=== PATIENT | male | born 1960 | race Caucasian/White ===

== ENCOUNTER 2022-01-24 11:57 | Emergency (ER) | payer OTHER, MEDICAID ==
[~2022-01-24] VITALS: Ht 167.6 cm; Wt 78.0 kg
[2022-01-24 11:58] VITALS: BP 150/80
[2022-01-24] MEDS ORDERED: CLIN-194 MT (15:11)
[2022-01-24] MEDS ORDERED: IBUP-2028 MT (15:11)
== END 2022-01-24 16:56 | disposition home or self-care (01) ==
LOC: ER 11:57
DX: L03.113 Cellulitis of right upper limb (principal)
CPT/HCPCS: 99283

== ENCOUNTER 2022-03-01 20:09 | Inpatient (IN) | payer MEDICARE, MEDICAID ==
[~2022-03-01] VITALS: Ht 177.8 cm; Wt 81.6 kg
[~2022-03-01 20:09] MED LIST: CLIN-194 MT; IBUP-2028 MT
[2022-03-01] MEDS ORDERED: SODIUM CHLORIDE 0.9% 1,000 ML IV ONE (23:15)
[2022-03-01] MEDS ORDERED: ACETAMINOPHEN 325MG TABLET PO STA (23:15)
[2022-03-01 23:55] LABS: HEMOGLOBIN. 11.1 g/dL (14.0-18.0); MEAN CORPUSCULAR HEMOGLOBIN 34.1 pg (28.0-32.0); MEAN CORPUSCULAR VOLUME 101.5 fL (80.0-94.0); MEAN PLATELET VOLUME 5.8 fl (7.4-10.4); PLATELET 442 x1000/uL (130-400); RED BLOOD CELL COUNT 3.25 mill/uL (4.7-6.1); RED CELL DISTRIBUTION WIDTH 16.9 % (11.6-14.6)
[2022-03-02] LABS: CHLORIDE 109 mEq/L (98-107)
[2022-03-02 00:13] LABS: ETHANOL BLOOD 328 mg/dL
[2022-03-02] MEDS ORDERED: MAGNESIUM 2 G PREMIX 50 ML IV ONE (00:30)
[2022-03-02] MEDS ORDERED: POTASSIUM CHLORIDE 20MEQ TABLET SR PO ONE (00:30)
[2022-03-02] MEDS ORDERED: SODIUM CHLORIDE 0.9% 1,000 ML IV ONE (00:30)
[2022-03-02 02:30] LABS: PLATELET ESTIMATE INCREASED
[2022-03-02] MEDS ORDERED: CHLORDIAZEPOXIDE 25MG CAPSULE PO ONE (06:15)
[2022-03-02 09:00] VITALS: BP 117/64
[2022-03-02] MEDS ORDERED: TRAMADOL 50MG TABLET PO PRN (10:00)
[2022-03-02] MEDS ORDERED: MAGNESIUM/ALUMINUM HYDROXIDE/SIMETHICONE 30ML UDC PO PRN (10:00)
[2022-03-02] MEDS ORDERED: GUAIFENESIN 200MG/10ML SUGAR FREE UDC PO PRN (10:00)
[2022-03-02] MEDS ORDERED: ONDANSETRON HCL 4MG/2ML INJ IV PRN (10:00)
[2022-03-02] MEDS ORDERED: DOCUSATE SODIUM 100MG CAPSULE PO PRN (10:00)
[2022-03-02] MEDS ORDERED: ACETAMINOPHEN 325MG TABLET PO PRN (10:00)
[2022-03-02] MEDS ORDERED: CLONIDINE 0.1MG TABLET PO PRN (10:00)
[2022-03-02] MEDS ORDERED: KCL 10MEQ/50ML PREMIX 50 ML IV NR (11:00)
[2022-03-02 12:00] VITALS: BP 120/70
[2022-03-02] MEDS ORDERED: MVI, ADULT NO.1 10 ML, FOLIC ACID 1 MG, THIAMINE HCL 100 MG in SODIUM CHLORIDE 0.9% 1,0... IV SCH ×4 (12:00)
[2022-03-02 12:53] LABS: BASOPHILS % 0.2 % (0.0-2.0); EOSINOPHILS % 0.6 % (0.0-5.0); HEMATOCRIT. 26.6 % (42.0-52.0); HEMOGLOBIN. 9.4 g/dL (14.0-18.0); MEAN CORPUSCULAR HEMOGLOBIN 34.8 pg (28.0-32.0); MEAN CORPUSCULAR VOLUME 98.3 fL (80.0-94.0); MEAN PLATELET VOLUME 6.1 fl (7.4-10.4); MONOCYTES % 7.9 % (2.0-8.0); NEUTROPHILS % 71.3 % (40.0-76.0); PLATELET 355 x1000/uL (130-400); RED BLOOD CELL COUNT 2.71 mill/uL (4.7-6.1); RED CELL DISTRIBUTION WIDTH 16.7 % (11.6-14.6)
[2022-03-02] MEDS ORDERED: VANCOMYCIN 2,000 MG in DEXT 5% WATER 500 ML IV NR (13:00)
[2022-03-02 13:12] LABS: CHLORIDE 106 mEq/L (98-107)
[2022-03-02] MEDS: PIPERACILLIN/TAZOBACTAM 3.375 G in DEXTROSE 5% WATER 50 ML IV SCH ×2 (13:29→21:17)
[2022-03-02] MEDS: GABAPENTIN 100MG CAPSULE PO SCH ×2 (13:30→21:17)
[2022-03-02 16:00] VITALS: BP 123/66
[2022-03-02] MEDS ORDERED: DEXTROSE 50% WATER 50ML SYRINGE IV PRN (18:45)
[2022-03-02] MEDS ORDERED: OXYC-580 PO (19:49)
[2022-03-02] MEDS ORDERED: GABA-532 PO (19:49)
[2022-03-02] MEDS ORDERED: METH-773 PO (19:49)
[2022-03-02] MEDS ORDERED: levothyroxine PO (19:49)
[2022-03-02 20:10] VITALS: BP 114/65
[2022-03-02] MEDS ORDERED: HYDROCODONE/ACETAMINOPHEN 7.5/325MG TABLET PO PRN (21:00)
[2022-03-02] MEDS ORDERED: NALOXONE HCL 0.4MG/ML VIAL IV PRN (21:00)
[2022-03-02] MEDS: BLOOD SUGAR DIAGNOSTIC STRIP TEST SCH (21:18)
[2022-03-02] MEDS: NICOTINE 21MG PATCH TD SCH (21:18)
[2022-03-02] MEDS: INSULIN LISPRO 100 UNITS/ML SUBCUT SCH (21:19)
[2022-03-02] MEDS: HYDROCODONE/ACETAMINOPHEN 7.5/325MG TABLET PO PRN (21:30)
[2022-03-02] MEDS: LORAZEPAM 2MG/ML CPJ IV PRN (23:45)
[2022-03-03] VITALS: BP 102/58
[2022-03-03] MEDS: VANCOMYCIN 1.25GM PMX (XELLIA) 250 ML IV SCH ×2 (01:21→13:59)
[2022-03-03 04:02] VITALS: BP 100/59
[2022-03-03] MEDS: LORAZEPAM 2MG/ML CPJ IV PRN ×2 (04:02→17:39)
[2022-03-03] MEDS: HYDROCODONE/ACETAMINOPHEN 7.5/325MG TABLET PO PRN (04:02)
[2022-03-03] MEDS: PIPERACILLIN/TAZOBACTAM 3.375 G in DEXTROSE 5% WATER 50 ML IV SCH ×3 (05:32→22:06)
[2022-03-03 05:55] LABS: BASOPHILS % 0.5 % (0.0-2.0); EOSINOPHILS % 1.2 % (0.0-5.0); HEMOGLOBIN. 8.2 g/dL (14.0-18.0); LYMPHOCYTES % 24.4 % (20.0-50.0); MEAN CORPUSCULAR HEMOGLOBIN 34.5 pg (28.0-32.0); MEAN CORPUSCULAR VOLUME 101.9 fL (80.0-94.0); MEAN PLATELET VOLUME 6.3 fl (7.4-10.4); NEUTROPHILS % 61.9 % (40.0-76.0); PLATELET 266 x1000/uL (130-400); RED BLOOD CELL COUNT 2.36 mill/uL (4.7-6.1); RED CELL DISTRIBUTION WIDTH 17.2 % (11.6-14.6)
[2022-03-03 06:34] LABS: CHLORIDE 100 mEq/L (98-107)
[2022-03-03] MEDS: GABAPENTIN 100MG CAPSULE PO SCH (06:40)
[2022-03-03] MEDS: BLOOD SUGAR DIAGNOSTIC STRIP TEST SCH ×4 (06:43→20:59)
[2022-03-03 06:48] LABS: HDL CHOLESTEROL 55 mg/dL (40-59); LDL CHOLESTEROL 32 mg/dL (5-100)
[2022-03-03 08:00] VITALS: BP 115/62
[2022-03-03] MEDS ORDERED: INSULIN GLARGINE 100 UNITS/ML SUBCUT SCH (10:15)
[2022-03-03] MEDS: NICOTINE 21MG PATCH TD SCH (10:37)
[2022-03-03] MEDS: INSULIN LISPRO 100 UNITS/ML SUBCUT SCH ×4 (10:40→20:58)
[2022-03-03] MEDS ORDERED: METHOCARBAMOL 500MG TABLET PO PRN (11:45)
[2022-03-03 12:00] VITALS: BP 110/60
[2022-03-03 16:00] VITALS: BP 125/70
[2022-03-03 17:18] LABS: VITAMIN B12 SERUM 747 pg/mL (211-911)
[2022-03-03] MEDS: OXYCODONE HCL 5MG TABLET PO PRN ×2 (17:38→21:59)
[2022-03-03 20:00] VITALS: BP 114/67
[2022-03-03] MEDS: PREGABALIN 50 MG CAPSULE PO SCH ×2 (22:04→22:05)
[2022-03-04] VITALS (8 sets, daily range): BP systolic 110–149; BP diastolic 62–94
[2022-03-04] MEDS: VANCOMYCIN 1.25GM PMX (XELLIA) 250 ML IV SCH (01:50)
[2022-03-04] MEDS: OXYCODONE HCL 5MG TABLET PO PRN ×6 (02:25→23:12)
[2022-03-04] MEDS: PIPERACILLIN/TAZOBACTAM 3.375 G in DEXTROSE 5% WATER 50 ML IV SCH ×3 (06:18→23:13)
[2022-03-04] MEDS: PREGABALIN 50 MG CAPSULE PO SCH ×3 (06:19→21:05)
[2022-03-04] MEDS: LORAZEPAM 2MG/ML CPJ IV PRN (06:21)
[2022-03-04] MEDS: BLOOD SUGAR DIAGNOSTIC STRIP TEST SCH ×4 (06:42→21:00)
[2022-03-04] MEDS: INSULIN LISPRO 100 UNITS/ML SUBCUT SCH ×4 (06:51→21:05)
[2022-03-04 08:45] LABS: CHLORIDE 98 mEq/L (98-107)
[2022-03-04] MEDS: INSULIN GLARGINE 100 UNITS/ML SUBCUT SCH (10:08)
[2022-03-04] MEDS: NICOTINE 21MG PATCH TD SCH (10:09)
[2022-03-04] MEDS: VANCOMYCIN 1G PREMIX 200 ML IV SCH ×2 (13:28→21:41)
[2022-03-04] MEDS ORDERED: SULF1TAB48 MT (16:30)
[2022-03-05] VITALS: BP 147/97
[2022-03-05 04:00] VITALS: BP 106/68
[2022-03-05] MEDS: OXYCODONE HCL 5MG TABLET PO PRN ×3 (04:11→13:03)
[2022-03-05] MEDS: VANCOMYCIN 1G PREMIX 200 ML IV SCH (04:12)
[2022-03-05] MEDS: LORAZEPAM 2MG/ML CPJ IV PRN ×2 (04:51→13:03)
[2022-03-05] MEDS: PIPERACILLIN/TAZOBACTAM 3.375 G in DEXTROSE 5% WATER 50 ML IV SCH (06:16)
[2022-03-05] MEDS: PREGABALIN 50 MG CAPSULE PO SCH ×2 (06:21→13:03)
[2022-03-05] MEDS ORDERED: INSULIN LISPRO 100 UNITS/ML SUBCUT NR (06:30)
[2022-03-05] MEDS: BLOOD SUGAR DIAGNOSTIC STRIP TEST SCH (06:32)
[2022-03-05] MEDS: INSULIN LISPRO 100 UNITS/ML SUBCUT SCH ×2 (06:33→13:50)
[2022-03-05 08:00] VITALS: BP 149/93
[2022-03-05] MEDS: NICOTINE 21MG PATCH TD SCH (09:12)
[2022-03-05] MEDS: INSULIN GLARGINE 100 UNITS/ML SUBCUT SCH (09:12)
[2022-03-05 12:00] VITALS: BP 142/80
== END 2022-03-05 14:20 | DRG 853 ==
LOC: ER 20:09 → 6WST 03-02 06:17 → ENRESERV 03-02 07:14 → 6WST 03-02 09:27
PROVIDERS: ADMIT Hospitalist; ATTEND Hospitalist
PROC: 0LBV0ZZ Excision of Right Foot Tendon, Open Approach (ICD-10-PCS; principal; 2022-03-03)
PROC: 0JBR0ZZ Excision of Left Foot Subcutaneous Tissue and Fascia, Open Approach (ICD-10-PCS; 2022-03-03)
DX: A41.9 Sepsis, unspecified organism (principal); G92.9 Unspecified toxic encephalopathy; F10.239 Alcohol dependence with withdrawal, unspecified; E44.0 Moderate protein-calorie malnutrition; L03.115 Cellulitis of right lower limb; D63.8 Anemia in other chronic diseases classified elsewhere; E11.40 Type 2 diabetes mellitus with diabetic neuropathy, unspecified; F17.200 Nicotine dependence, unspecified, uncomplicated; G89.4 Chronic pain syndrome; M19.072 Primary osteoarthritis, left ankle and foot; M19.071 Primary osteoarthritis, right ankle and foot; F17.210 Nicotine dependence, cigarettes, uncomplicated; E03.9 Hypothyroidism, unspecified; E11.65 Type 2 diabetes mellitus with hyperglycemia; S00.81XA Abrasion of other part of head, initial encounter; D53.9 Nutritional anemia, unspecified; L97.519 Non-pressure chronic ulcer of other part of right foot with unspecified severity; S00.31XA Abrasion of nose, initial encounter; L97.529 Non-pressure chronic ulcer of other part of left foot with unspecified severity; E11.42 Type 2 diabetes mellitus with diabetic polyneuropathy; M47.26 Other spondylosis with radiculopathy, lumbar region; M47.812 Spondylosis without myelopathy or radiculopathy, cervical region; M51.16 Intervertebral disc disorders with radiculopathy, lumbar region; I10 Essential (primary) hypertension; E78.5 Hyperlipidemia, unspecified; F10.229 Alcohol dependence with intoxication, unspecified; Z68.25 Body mass index [BMI] 25.0-25.9, adult; X58.XXXA Exposure to other specified factors, initial encounter; Y93.89 Activity, other specified; Y92.89 Other specified places as the place of occurrence of the external cause; Y99.8 Other external cause status; E11.621 Type 2 diabetes mellitus with foot ulcer
CPT/HCPCS: 36415; 73630; 73721; 80048; 80053; 80061; 80202; 80320; 82607; 82746; 82962; 83036; 85025; 85651; 87426; 93005; 93970; 97162; 99285; J1815; J2060; J2543; J3370; J3411; J3475; J3480; J3490; J7030; J7060; G0480